=== PATIENT | female | born 1975 | race Caucasian/White ===

== ENCOUNTER 2018-12-29 02:29 | Emergency (ER) | payer OTHER ==
[2018-12-29] MEDS ORDERED: diPHENhydraMINE IV* 50 MG/ML 1 ml VIAL (BENADRYL) SLOW PUSH ONE (02:38)
[2018-12-29] MEDS ORDERED: EPINEPHRINE 1 MG/ML 1 ML VIAL IM ONE (02:38)
[2018-12-29] MEDS ORDERED: Famotidine IV* 10 MG/ML 2 ML (20 mg) IV SLOW PU ONE (02:39)
[2018-12-29] MEDS ORDERED: NS 0.9% 1000 ML** 3,000 ML IV ONE (02:40)
[2018-12-29] MEDS ORDERED: Dexamethasone IV* 4 MG/ML 1 ML (4 MG) IV SLOW PU ONE (02:40)
--- NOTE | 2018-12-29 02:54 | ED ---
Allergic Reaction/Systemic - HPI Summary HPI Summary: The pt is a 43 yr old female presenting to [facility] c/o allergic reaction beginning 2 hours [employer]. Per her friend, the pt had sudden onset of allergic reaction to an unknown substance with outbreak of hives and swelling. The friend also notes that the pt was spitting foamy mucus and had a short episode of LOC before arriving. She was given Benadryl and an epipen by her friend that helped somewhat. The pt also reports difficulty breathing or swallowing, hoarse voice, and swollen hands. Pain severity is rated 0/10. No aggravating factors noted. - History of Current Complaint Chief Complaint: EDAllergicReaction Hx Obtained From: Patient, Other: - Friend Onset/Duration: Sudden Onset, Started hours ago, Still Present Timing: Constant, Lasting Hours Severity Initially: Mild Severity Currently: None Pain Intensity: 0 Pain Scale Used: 0-10 Numeric Character: Swelling, Hives Aggravating Factor(s): Nothing Alleviating Factor(s): Epinephrine, Other - benadryl Associated Signs And Symptoms: Positive: Difficulty Breathing, Hoarseness, Rash , Other: - pos - difficulty swallowing, LOC, swelling, spitting "foamy mucus" - Allergies/Home Medications Allergies/Adverse Reactions: Allergies Allergy/AdvReac Type Severity Reaction Status Date / Time No Known Allergies Allergy Verified 08/20/13 11:11 PMH/Surg Hx/FS Hx/Imm Hx Endocrine/Hematology History: Reports: Hx Anemia - Hx OF, HEAVY PERIODS Cardiovascular History: Reports: Hx Hypertension Respiratory History: Reports: Hx Asthma - Hx OF NO CURRENT, NO MEDS GI History: Reports: Hx Gastroesophageal Reflux Disease - Hx OF, BIOPSY, RESOLVED, Hx Ulcer, Other GI Disorders - GASTRIC BY-PASS 2008 Musculoskeletal History: Reports: Hx Arthritis - HANDS, LOW BACK, Hx Bursitis - SHOULDERS Sensory History: Reports: Hx Contacts or Glasses - CONTACTS, GLASSES DAY OF SURGERY Opthamlomology History: Reports: Hx Contacts or Glasses - CONTACTS, GLASSES DAY OF SURGERY Neurological History: Reports: Hx Migraine - GETS USUALLY 2xWK, HAS PRN MED Psychiatric History: Comment Only: Hx Anxiety - ON MEDS, Hx Depression - ON MEDS - Cancer History Hx Chemotherapy: No Hx Radiation Therapy: No - Surgical History Surgery Procedure, Year, and Place: Ablasian gb [id number]. Tubal ligation Hx Anesthesia Reactions: No Infectious Disease History: No Infectious Disease History: Denies: Traveled Outside the [place] in Last 30 Days - Family History Known Family History: Positive: Hypertension - Social History Alcohol Use: Daily Alcohol Amount: 2 beers Substance Use Type: Reports: None Smoking Status (MU): Current Every Day Smoker Type: Cigarettes Amount Used/How Often: 1/2 PPD 20 YRS Length of Time of Smoking/Using Tobacco: began at 17 years of age Have You Smoked in the Last Year: Yes Review of Systems ENT: Other - pos - difficulty swallowing, hoarseness, spitting "foamy mucus" Respiratory: Other - pos - difficulty breathing Positive: Rash, Other - swelling of hands Positive: Syncope All Other Systems Reviewed And Are Negative: Yes Physical Exam - Summary Physical Exam Summary: Appearance: Well-appearing, Well-nourished, lying in bed comfortably Skin: Warm, dry, no urticaria, swelling lips and periorbital region Eyes: sclera anicteric, no conjunctival pallor ENT: mucous membranes moist, pharynx appears normal, no lingual swelling Neck: Supple, nontender Respiratory: Clear to auscultation, no signs of respiratory distress, muffled and hoarse voice, no strider or sign of upper airway obstruction Cardiovascular: Normal S1, S2. No murmurs. Normal distal pulses in tibial and radial bilaterally. Abdomen: Soft, nontender, normal active bowel sounds present Musculoskeletal: Normal, Strength/ROM Intact Neurological: A&Ox3, awake and alert, mentation is normal, speech is fluent and appropriate Psychiatric: affect is normal, does not appear anxious or depressed Triage Information Reviewed: Yes Vital Signs On Initial Exam: Initial Vitals Temp Pulse Resp BP Pulse Ox 95.8 F 121 18 107/80 99 12/29/18 02:31 12/29/18 02:31 12/29/18 02:31 12/29/18 02:31 12/29/18 02:31 Vital Signs Reviewed: Yes Diagnostics - Vital Signs Vital Signs Temp Pulse Resp BP Pulse Ox 12/29/18 02:31 95.8 F 121 18 107/80 99 - Laboratory Lab Statement: Any lab studies that have been ordered have been reviewed, and results considered in the medical decision making process. Re-Evaluation - Re-Evaluation First Eval Re-Evaluation Time: 03:49 Change: Improved Comment: Pt is feeling better, mild changes with phonation but no signs for upper respiratory obstruction. Allergic Reaction Course/Dx - Course Course Of Treatment: The pt is a 43 yr old female presenting to [facility] c/o allergic reaction beginning 2 hours [employer]. The pt also reports LOC, spitting foamy mucus, hives, hoarseness, difficulty breathing or swallowing and swollen hands. No test or imaging results to report. In the ED course pt was given 3000 mls fluids, 8 mg Decadron IV, 50 mg Benadryl IV, 0.3 mg Adrenalin IM, 40 mg Pepcid IV, and 8 mg Zofran IV. Final Dx is anaphylaxis. The pt will be discharged home with PCP follow up. Pt is agreeable with this plan. - Diagnoses Provider Diagnoses: Anaphylaxis Discharge ED - Sign-Out/Discharge Documenting (check all that apply): Patient Departure - discharge Patient Received Moderate/Deep Sedation with Procedure: No - Discharge Plan Condition: Stable Disposition: HOME Prescriptions: EPINEPHrine [Epipen 2-Jun] 0.3 mg IM ONCE PRN #1 inj PRN Reason: Allergy Symptoms Famotidine TAB* [Pepcid 20 MG TAB*] 20 mg PO BID 5 Days #10 tab predniSONE TAB* [Deltasone 20 MG TAB*] 40 mg PO DAILY 5 Days #10 tab Patient Education Materials: Anaphylaxis (ED) Referrals: Binta Huff MD [Primary Care Provider] - 2 Days Additional Instructions: You may need to see an tone regulator for testing to find out what may have caused your reaction tonight. Take the medication as prescribed over the next few days. - Billing Disposition and Condition Condition: STABLE Disposition: Home - Attestation Statements Document Initiated by Joni: Yes Documenting Scribe: Rolando Cintron Provider For Whom Joni is Documenting (Include Credential): Vinay Sandoval MD Scribe Attestation: Rolando Segura, scribed for Vinay Sandoval MD on 12/29/18 at 2058. Scribe Documentation Reviewed: Yes Provider Attestation: The documentation as recorded by the Rolando farah accurately reflects the service I personally performed and the decisions made by , Vinay Sandoval MD Status of Scribe Document: Viewed
[2018-12-29] MEDS ORDERED: Ondansetron INJ* 2 MG/ML VIAL IV ONE (04:00)
[2018-12-29 06:13] VITALS: BP 123/83
== END 2018-12-29 06:12 | disposition home or self-care (01) ==
LOC: ED 02:29
DX: T78.2XXA Anaphylactic shock, unspecified, initial encounter (principal); R06.02 Shortness of breath; R21 Rash and other nonspecific skin eruption; F17.210 Nicotine dependence, cigarettes, uncomplicated; R55 Syncope and collapse; K21.9 Gastro-esophageal reflux disease without esophagitis; F41.9 Anxiety disorder, unspecified; F32.9 Major depressive disorder, single episode, unspecified; I10 Essential (primary) hypertension
CPT/HCPCS: 96361; 96372; 96374; 96375; 99282; J1100; J1200; J2405